=== PATIENT | male | born 1965 | race African-American/Black ===

== ENCOUNTER 2018-01-17 01:22 | Emergency (ER) | payer BC ==
[~2018-01-17] VITALS: Ht 170.2 cm; Wt 99.8 kg
[~2018-01-17 01:22] MED LIST: LISI-420 PO
[2018-01-17 01:26] VITALS: BP 190/130
--- NOTE | 2018-01-17 01:28 | NUR ---
TO BED # 8 AMBULATORY, REPORT GIVEN TH ZABRINA MICA.
--- NOTE | 2018-01-17 01:30 | NUR ---
PATIENT PRESENTS TO ED WITH COUGH AND SORE THROAT X2 DAYS. PT DENIES N/V/D; SKIN IS PINK/WARM/DRY; AAOX4 WITH EVEN AND STEADY GAIT; HR EVEN AND REGULAR; PT DENIES ANY FEVER, CP, SOB, AT THIS TIME; PATIENT STATES PAIN OF 3/10 AT THIS TIME; VSS; PATIENT POSITIONED FOR COMFORT; HOB ELEVATED; BEDRAILS UP X1; BED DOWN. ER MD MADE AWARE OF PT STATUS.
--- NOTE | 2018-01-17 01:33 | NUR ---
Dr. Cantu evaluating patient at bedside.
[2018-01-17 01:48] VITALS: BP 190/130
--- NOTE | 2018-01-17 01:48 | NUR ---
Patient discharged with v/s stable. Written and verbal after care instructions given and explained. Patient alert, oriented and verbalized understanding of instructions. Ambulatory with steady gait. All questions addressed prior to discharge. ID band removed. Patient advised to follow up with PMD. Rx of PROMETHAZINE, AUGMENTIN given. Patient educated on indication of medication including possible reaction and side effects. Opportunity to ask questions provided and answered.
== END 2018-01-17 01:48 | disposition home or self-care (01) ==
LOC: MED 01:22
DX: J20.9 Acute bronchitis, unspecified (principal); I10 Essential (primary) hypertension; Z79.899 Other long term (current) drug therapy
CPT/HCPCS: 99283

== ENCOUNTER 2019-01-18 19:08 | Emergency (ER) | payer BC ==
[~2019-01-18] VITALS: Ht 170.2 cm; Wt 104.3 kg
[2019-01-18 19:30] VITALS: BP 153/100
--- NOTE | 2019-01-18 19:30 | NUR ---
TO BED # 09 AMBULATORY , REPORT GIVEN TO DARWIN NINO
--- NOTE | 2019-01-18 19:35 | NUR ---
53 YO MALE COMES TO [facility] ER FOR C/O COUGH. 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 PT STATES HE WAS [facility] FOR SIMILAR SYMPTOMS AND WAS D/C'D WITH RX FOR PNA. PT UNABLE TO REMEMBER THE NAME OF ABX MEDICATION. PT AAOX4 DENIES CP OR SOB. PT HAS INTERMITTENT COUGH WITH WHITE PHLEGM, 100% SPO2 ON ROOM AIR, DIMINISHED BREATH SOUNDS BILATERAL BASES. DENIES N/V/D. PT VOIDING CLEAR YELLOW URINE. SKIN INTACT. NOEMY LOCKED IN LOWEST POSITION. PMH: BRONCHITIS, HTN AX: DENIES MED: PT UNABLE TO REMEMBER NAME OF MEDS
[2019-01-18 21:25] VITALS: BP 144/90
--- NOTE | 2019-01-18 21:33 | NUR ---
Patient discharged with v/s stable. Written and verbal after care instructions given and explained. Patient alert, oriented and verbalized understanding of instructions. Ambulatory with steady gait. All questions addressed prior to discharge. ID band removed. Patient advised to follow up with PMD. Rx of VENTOLIN INH, AND PHENERGAN PO given. Patient educated on indication of medication including possible reaction and side effects. Opportunity to ask questions provided and answered.
== END 2019-01-18 21:25 | disposition home or self-care (01) ==
LOC: MED 19:08
DX: R05 Cough (principal); R50.9 Fever, unspecified; I10 Essential (primary) hypertension; Z79.899 Other long term (current) drug therapy
CPT/HCPCS: 71045; 99283; Q0092

== ENCOUNTER 2020-10-04 13:39 | Emergency (ER) | payer BC ==
[~2020-10-04] VITALS: Ht 170.2 cm; Wt 93.9 kg
[~2020-10-04 13:39] MED LIST changes: -LISI-420 PO; +LISI-487 PO
[2020-10-04 13:47] VITALS: BP 187/100
--- NOTE | 2020-10-04 13:47 | NUR ---
PT W/C ASSISTED TO BED 4
--- NOTE | 2020-10-04 13:52 | NUR ---
55 Y/O MALE C/O RIGHT FOOT PAIN X2 DAYS, STARTED THURSDAY. PT STATES THAT HE THINKS HIS WORK SHOES DON'T FIT RIGHT, ALSO STATES HE WALKS A LOT AT WORK, DENIES INJURY OR TRAUMA. PT RATES PAIN 4/10 THAT IS THROBBING AND RADIATES TO R HIP. PT STATES THE TOP OF HIS FOOT IS NUMB BUT NO TINGLING. WHEN WALKING, PAIN IS 10/10. PT USED ICY HOT AND TOOK IBUPROFEN WITH RELIEF OF PAIN. ON ASSESSMENT, TOP/LATERAL ASPECT OF FOOT HAS SWELLING, +2 PEDAL PULSES, AND <3 SECONDS CAP REFILL. PT ABLE TO WIGGLE TOES WITH LIMITED ROM +PAIN WHEN MOVING SIDE TO SIDE. PT W/C TO BED. PT A/O X4 WITH EVEN AND UNLABORED RESPIRATIONS. PT LAYING IN BED WITH BED IN LOWEST POSITION, BRAKES LOCKED, X1 SIDERAIL UP. HX HTN NKA
--- NOTE | 2020-10-04 13:56 | NUR ---
LOLITA NICHOLS AT BEDSIDE
--- NOTE | 2020-10-04 14:12 | NUR ---
RAD AT BEDSIDE
--- NOTE | 2020-10-04 14:49 | NUR ---
PT SITTING IN BED. RATES PAIN 4/10 BUT DOES NOT WANT ANY PAIN MEDS AT THIS TIME. WILL CONTINUE TO MONITOR
--- NOTE | 2020-10-04 15:30 | NUR ---
PT TAKEN TO CT VIA W/C
--- NOTE | 2020-10-04 16:05 | NUR ---
PT RESTING IN BED WITH EVEN AND UNLABORED RESPIRATIONS.
[2020-10-04] MEDS ORDERED: NAPR-1717 PO (16:29)
[2020-10-04] MEDS ORDERED: KETOROLAC 30 MG/ML VIAL IM ONE (16:30)
[2020-10-04 16:53] VITALS: BP 187/100
== END 2020-10-04 16:53 | disposition home or self-care (01) ==
LOC: MED 13:39
DX: M79.671 Pain in right foot (principal); I10 Essential (primary) hypertension; Z79.899 Other long term (current) drug therapy
CPT/HCPCS: 73630; 73700; 96372; 99284; J1885

== ENCOUNTER 2021-05-07 00:35 | Observation (INO) | payer BC, SELFPAY ==
[~2021-05-07] VITALS: Ht 170.2 cm; Wt 108.4 kg
[~2021-05-07 00:35] MED LIST changes: +NAPR-1717 PO
[2021-05-07 00:40] VITALS: BP 200/100
--- NOTE | 2021-05-07 00:54 | NUR ---
[facility] EMT PERFORMING EKG IN TRIAGE.
--- NOTE | 2021-05-07 01:05 | NUR ---
PT TAKEN TO BED 3.
[2021-05-07 01:17] LABS: BASOPHILS # (AUTO) 0.1 K/uL (0.00-0.22); BASOPHILS % (AUTO) 1.4 % (0.0-2.0); EOSINOPHILS # (AUTO) 0.3 K/uL (0-0.4); EOSINOPHILS % (AUTO) 4.8 % (0.0-4.0); HEMATOCRIT 43.2 % (36-52); LYMPHOCYTES # (AUTO) 2.2 K/uL (2.0-11.5); LYMPHOCYTES % (AUTO) 31.1 % (20.5-51.1); MEAN CORPUSCULAR HEMOGLOBIN 28 pg (27-31); MEAN CORPUSCULAR HGB CONC 32 g/dL (33-37); MEAN CORPUSCULAR VOLUME 86.8 fL (80-94); MONOCYTES # (AUTO) 0.6 K/uL (0.8-1.0); MONOCYTES % (AUTO) 7.9 % (1.7-9.3); NEUTROPHILS # (AUTO) 3.8 K/uL (1.8-7.7); NEUTROPHILS % (AUTO) 54.8 % (42.2-75.2); PLATELET COUNT (AUTO) 312 K/uL (140-450); RED BLOOD CELL COUNT(AUTO) 4.98 MIL/uL (4.20-6.10); RED CELL DISTRIBUTION WIDTH 15.4 % (11.6-13.7)
[2021-05-07 01:29] LABS: PROTHROMBIN TIME 9.9 secs (10.8-13.4)
[2021-05-07 01:30] LABS: ALBUMIN 3.6 g/dL (3.4-5.0); ANION GAP 16.2 (8-16); CARBON DIOXIDE 21.5 mmol/L (21-32); CREATININE 2.4 mg/dL (0.6-1.3); POTASSIUM 3.7 mmol/L (3.5-5.1); TOTAL BILIRUBIN 0.4 mg/dL (0.0-1.0)
--- NOTE | 2021-05-07 01:36 | NUR ---
56 YO/M BIB SELF W C/O SOB, COUGH AND CONGESTION X1 WEEK. PATIENT REPORTS HIS GRANDKIDS HAVE BEEN SICK W BRONCHITIS. PATIENT DENIES ANY PAIN, CHEST PAIN, FEVERS, N/V/D. LONG SOUNDS CLEAR THROUGHOUT W BREATHING EVEN AND UNLABORED. VSS EXCEPT BP AT 184/121 AND TACHYCARDIC AT 96HR. ERMD AWARE. PATIENT LAYING IN BED LOCKED IN LOWEST POSITION W X1 SIDERAIL UP. PATIENT IN A GOWN. NAD NOTED, WILL CONTINUE TO MONITOR. PMH:HTN, BRONCHITIS ALLERGIES: SEASONAL, DAIRY
[2021-05-07] MEDS ORDERED: ENALAPRILAT 2.5 MG/2 ML VIAL IVP ONE (02:05)
--- NOTE | 2021-05-07 02:05 | NUR ---
MARCIA SAMPLE COLLECTED FROM PATIENT NARES, HANDED TO SALT MANAGER.
[2021-05-07] MEDS ORDERED: LISI-487 PO (02:08)
--- NOTE | 2021-05-07 03:25 | NUR ---
ASHLYN GAMBOA [phone]
--- NOTE | 2021-05-07 04:06 | NUR ---
PATIENT APPEARS TO BE RESTING W EYES CLOSED IN SUPINE POSITION W BED LOCKED IN LOWEST POSITION, X1 SIDERAIL UP. HOB ELEVATED. BREATHING EVEN AND UNLABORED. NAD NOTED, WILL CONTINUE TO MONITOR. VSS ON MONITOR.
[2021-05-07] MEDS ORDERED: ASPIRIN 81 MG TAB.CHEW PO ONE (04:30)
--- NOTE | 2021-05-07 05:05 | NUR ---
PATIENT REPORTS HE FEELS BETTER, DENIES ANY MORE SOB. DENIES ANY PAIN. VSS
[2021-05-07] MEDS ORDERED: NACL 0.9% 500 ML IV ONE (06:15)
--- NOTE | 2021-05-07 06:41 | NUR ---
PATIENT LAYING IN BED LOCKED IN LOWEST POSTION W HOB ELEVATED. REPORTS HE FEELS GOOD, DENIES ANY SOB. DENIES ANY PAIN. VSS
[2021-05-07] MEDS ORDERED: ACETAMINOPHEN 325 MG TAB PO PRN (07:15)
[2021-05-07] MEDS ORDERED: HEPARIN PER PHARMACY MC PRN (07:15)
[2021-05-07] MEDS ORDERED: MORPHINE SULFATE 2 MG/ML SYR IVP PRN (07:15)
[2021-05-07] MEDS ORDERED: NACL 0.9% 1,000 ML IV SCH (07:15)
[2021-05-07] MEDS ORDERED: HYDROcodone/APAP 5/325 MG 1 TAB TAB PO PRN (07:15)
--- NOTE | 2021-05-07 07:17 | NUR ---
Pt report given to MICA ROGERS. Transfer of care at this time.
--- NOTE | 2021-05-07 07:57 | NUR ---
PATIENT APPEARS TO BE RESTING, PROVIDED WITH BREAKFAST TRAY, LIGHTS DIMMED FOR COMFORT. 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
[2021-05-07] MEDS ORDERED: hePARIN / DEXT 5% PREMIX 250 ML IV SCH (08:10)
[2021-05-07 08:45] LABS: CREATINE KINASE MB 3.8 ng/mL (0-3.6)
[2021-05-07] MEDS ORDERED: METOPROLOL 25 MG TAB PO SCH (09:00)
--- NOTE | 2021-05-07 09:30 | NUR ---
PATIENT AMBULATED TO RESTROOM WITH STEADY GAIT.
--- NOTE | 2021-05-07 10:12 | NUR ---
Patient will be admitted to care of DR. DEL ROSARIO. Admited to ICU. Will go to room ICU 3. Belongings list completed. Report to MARTINEZ.
--- NOTE | 2021-05-07 10:45 | NUR ---
RECEIVED REPORT FROM ER NURSE. ADMITTED 56Y/O MALE WITH CC OF SOB, CHEST CONGESTION AND COUGH. ADMITTING DX OF CHEST PAIN. HX INCLUDES HTN. AOX4, ABLE TO MAKE NEEDS KNOWN, NO C/O PAIN AT THIS TIME, NO SOB ON ROOM AIR. IV SITE RH 20G RUNNING NS AT 75CC/HR. SR ON MONITOR. SBP 150/160. WILL NOTIFY MD. SKIN INTACT. AMBULATORY WITHOUT ASSIST, BOWEL AND BLADDER CONTINENT. CALL LIGHT WITHIN REACH. WILL CONTINUE TO MONITOR
[2021-05-07 11:01] LABS: CHOL/HDL RATIO 6.6 (1-4.5)
--- NOTE | 2021-05-07 11:10 | NUR ---
DR NICHOLS AT BEDSIDE, TALKED TO PT ABOUT PLAN OF CARE, PT VERBALIZED UNDERSTANDING
--- NOTE | 2021-05-07 12:00 | NUR ---
SEEN AND EXAMINED BY DR MONTEIRO, UPDATED PLAN OF CARE
[2021-05-07] MEDS ORDERED: FUROSEMIDE 40 MG/4 ML VIAL IVP SCH (12:05)
--- NOTE | 2021-05-07 12:05 | NUR ---
DC PLANNING: CM APPROACHED BY DR MONTEIRO, PATIENT MAY NEED A CARDIAC CATH. CM SPOKE WITH THAI AT [facility], ASKED THAT CM FAX PACKED TO [facility] ([phone]). DR MONTEIRO HAS NOT YET DONE THE PATIENTS CARDIAC WORK UP, PACKET WILL BE FAXED FOR CATH BASED ON FINDINGS. CM WILL FOLLOW FOR NEEDS. Addendum: 05/07/21 at 1300 by Sanjuanita Ramey RN DC PLANNING: FAXED TO [facility] AND [facility]. PER THAI HIS HEEL SEAM RUBBER TO REVIEW THE CLINICALS. AWAITING FOR AUTH. CM TO FOLLOW Addendum: 05/07/21 at 1425 by Sanjuanita Ramey RN DC PLANNING: RECEIVED A CALL FROM [facility] SPOKE WITH CARLOS IVAN ACCEPTING PATIENT AND ACCEPTING DR WILL BE DR TORRES AND TAIL EDGER WILL BE DR ESTEVEZ. CALLED THAI AT [facility] STATED [facility] IS NOT CONTRACTED WITH [facility] AND TO FOLLOW UP WITH [facility]. CALLED [facility] SPOKE WITH FABIANO STATED THEY ARE STILL REVIEWING AND FINDING THE ACCEPTED PHYSICIAN AND DON'T HAVE A TELE BED AT THIS TIME. NOTIFIED DR MONTEIRO AND DR NICHOLS .CM TO FOLLOW Addendum: 05/07/21 at 1650 by Sanjuanita Ramey RN DC PLANNING: RECEIVED A CALL FROM THAI CANTU AT [facility] STATED [facility] ACCEPTED PATIENT WILL CALL WHEN BED AVAILABLE , PROVIDE TRANSPORT AUTH [id number] . ARRANGE TRANSPORT WITH [facility] PLACE IT WILL CALL. NOTIFIED NURSE SARA , DR NICHOLS AND DR MONTEIRO TAIL EDGER. PLS CALL [facility] [phone] FOR TRANSPORT. CM TO FOLLOW Addendum: 05/07/21 at 1705 by Sanjuanita Ramey RN DC PLANNING: RECEIVED A CALL FROM THAI STATED PT CAN GO TO ROOM 359A, # TO GIVE REPORT [phone] SNIDER. ARRANGE TRANSPORT WITH [facility] ROLLED GOLD PLATER TIME 6 PM NOTIFIED MARTINEZ NINO.
[2021-05-07 12:13] VITALS: BP 158/85
--- NOTE | 2021-05-07 13:30 | NUR ---
PT RESTING IN BED. NO APPARENT DISTRESS
[2021-05-07] MEDS ORDERED: CARV12.52 PO (13:43)
[2021-05-07] MEDS ORDERED: ASPI81CT95 PO (13:43)
[2021-05-07] MEDS ORDERED: MORP2SOL18 IVP (13:43)
[2021-05-07] MEDS ORDERED: Heparin Per Pharmacy MC (13:43)
[2021-05-07] MEDS ORDERED: heparin (13:43)
[2021-05-07] MEDS ORDERED: LAS20I IVP (13:43)
[2021-05-07] MEDS ORDERED: LIP80 PO (13:43)
--- NOTE | 2021-05-07 13:59 | NUR ---
PATIENT HAS BEEN SCREENED AND CATEGORIZED LOW NUTRITION RISK. PATIENT WILL BE SEEN WITHIN 7 DAYS OF ADMISSION. 05/13/[address]
[2021-05-07] MEDS: LABETALOL 100 MG/20 ML VIAL IV PRN ×2 (14:15→18:15)
--- NOTE | 2021-05-07 15:28 | NUR ---
ENGLISH TEACHER AT BEDSIDE
[2021-05-07 16:00] VITALS: BP 160/109
--- NOTE | 2021-05-07 17:30 | NUR ---
GAVE REPORT TO MICA BUENO IN [place]
--- NOTE | 2021-05-07 17:45 | NUR ---
UPDATE GIVEN TO PT AND , WILL TRANSFER TO [facility] FOR CARDIAC CATH, VERBALIZED UNDERSTANDING
[2021-05-07] MEDS ORDERED: hydrALAZINE 20 MG/ML VIAL IVP PRN (19:45)
[2021-05-07] MEDS ORDERED: hydrALAZINE 20 MG/ML VIAL ONE (19:48)
[2021-05-07 20:00] VITALS: BP 157/84
[2021-05-07 20:01] VITALS: BP 160/112
--- NOTE | 2021-05-07 20:20 | NUR ---
pt picked up by [facility], transfer to [place] for cardiac cath
[2021-05-07] MEDS ORDERED: carvediloL 12.5 MG TAB PO SCH (21:00)
[2021-05-07] MEDS ORDERED: ATORVASTATIN 80 MG TAB PO SCH (21:00)
[2021-05-08] MEDS ORDERED: lisinopriL 20 MG TAB PO SCH (09:00)
[2021-05-08] MEDS ORDERED: ASPIRIN 81 MG TAB.CHEW PO SCH (09:00)
== END 2021-05-07 20:30 | disposition critical access hospital (66) ==
LOC: MED 00:35 → MTU 07:17 → MIC 09:35
PROVIDERS: ADMIT Internal Medicine; ATTEND Internal Medicine
DX: I21.4 Non-ST elevation (NSTEMI) myocardial infarction (principal); Z20.822 Contact with and (suspected) exposure to COVID-19; I20.0 Unstable angina; I11.0 Hypertensive heart disease with heart failure; I50.9 Heart failure, unspecified; N17.9 Acute kidney failure, unspecified; R79.89 Other specified abnormal findings of blood chemistry; E66.9 Obesity, unspecified; R05.9 Cough, unspecified; E78.5 Hyperlipidemia, unspecified; G89.29 Other chronic pain; M54.9 Dorsalgia, unspecified; Z79.899 Other long term (current) drug therapy
CPT/HCPCS: 36415; 71045; 80053; 80061; 82550; 82553; 83036; 83880; 84484; 85025; 85610; 85730; 87426; 93005; 93307; 96361; 96365; 96366; 96375; 96376; 99285; G0378; J0360; J1644; J1940; J3490; J7060; Q0092